=== PATIENT | female | born 1995 | race Caucasian/White ===

== ENCOUNTER → 2018-02-12 | Outpatient (CLI) | payer BC ==
[2018-02-13 13:20] LABS: Beef IgE <0.35 kU/L (<0.35); Beef IgE Class CLASS 0; Chicken IgE Class CLASS 0; Gluten IgE Class CLASS 0; Pork IgE Class CLASS 0; Yeast Bakers/Brew IgE <0.35 kU/L (<0.35)
[2018-02-13 13:21] LABS: Avocado Class CLASS 0; Banana IgE Class CLASS 0; Cow's Milk IgE Class CLASS 0; Egg White IgE <0.35 kU/L (<0.35); Hazelnut IgE <0.35 kU/L (<0.35); Hazelnut IgE Class CLASS 0; Kiwi IgE <0.35 kU/L (<0.35); Latex IgE Class CLASS 0; Peanut IgE <0.35 kU/L (<0.35); Potato IgE <0.35 kU/L (<0.35); Potato IgE Class CLASS 0; Soybean IgE <0.35 kU/L (<0.35)
== END | disposition home or self-care (01) ==
LOC: LABWHC1 11:06
PROVIDERS: ATTEND Otolaryngology
DX: L50.0 Allergic urticaria (principal)
CPT/HCPCS: 36415; 86001; 86003

== ENCOUNTER 2021-04-05 08:10 | Emergency (ER) | payer BC, OTHER ==
[2021-04-05 08:26] VITALS: BP 146/96; PULSE 62; RESP 18; TEMP 98.1
[2021-04-05] MEDS ORDERED: BACITRACIN OINT 1 EACH PACKET TOPICAL ONE (09:31)
[2021-04-05] MEDS ORDERED: DIPH,PERTUS(ACELL)TETVAC-LF 0.5 ML VIAL IM ONE (09:31)
--- NOTE | 2021-04-05 09:33 | ED ---
Upper Extremity HPI - General Chief Complaint: Extremity Injury, Upper Stated Complaint: IHS-thumb lac Time Seen by Provider: 04/05/21 08:39 Source: patient, RN notes reviewed Mode of arrival: ambulatory Limitations: no limitations - History of Present Illness Initial Comments: 25-year-old female presents emergency from chief complaint of left thumb lace ration. 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 She states her is mild bleeding unsure when her last tetanus was. Patient offers no complaints of paresthesias. - Related Data Allergies Allergy/AdvReac Type Severity Reaction Status Date / Time No Known Allergies Allergy Verified 04/05/21 08:22 Review of Systems ROS Statement: Those systems with pertinent positive or pertinent negative responses have been documented in the HPI. ROS Other: All systems not noted in ROS Statement are negative. Past Medical History Past Medical History: No Reported History History of Any Multi-Drug Resistant Organisms: None Reported Additional Past Surgical History / Comment(s): oral Past Psychological History: Anxiety, Depression Smoking Status: Current some day smoker, Light tobacco smoker Past Alcohol Use History: Occasional Past Drug Use History: Marijuana General Exam Limitations: no limitations General appearance: alert, in no apparent distress Head exam: Present: atraumatic, normocephalic, normal inspection Respiratory exam: Present: normal lung sounds bilaterally. Absent: respiratory distress, wheezes, rales, rhonchi, stridor Cardiovascular Exam: Present: regular rate, normal rhythm, normal heart sounds. Absent: systolic murmur, diastolic murmur, rubs, gallop, clicks Extremities exam: Present: other (Left thumb there is a laceration involving the fingernail, no active bleeding there is mild nail disruption noted.) Course Vital Signs 04/05/21 08:23 Temperature 98.1 F Pulse Rate 62 Respiratory 18 Rate Blood Pressure 146/96 O2 Sat by Pulse 100 Oximetry Medical Decision Making - Medical Decision Making Patient has superficial injury, nail avulsion partial no closure needle be discharged stable condition tetanus is updated. Disposition Clinical Impression: Laceration of left thumb Disposition: HOME SELF-CARE Condition: Stable Instructions (If sedation given, give patient instructions): Laceration (ED) Additional Instructions: Please return to the Emergency Department if symptoms worsen or any other concerns. Is patient prescribed a controlled substance at d/c from ED?: No Referrals: Tanmay Stroud MD [Primary Care Provider] - 1-2 days Time of Disposition: 09:32
== END 2021-04-05 09:52 | disposition home or self-care (01) ==
LOC: SUPCPDRO 08:10 → EC 08:10
DX: S61.012A Laceration without foreign body of left thumb without damage to nail, initial encounter (principal); F17.200 Nicotine dependence, unspecified, uncomplicated; W27.5XXA Contact with paper-cutter, initial encounter
CPT/HCPCS: 90471; 90715; 99282